=== PATIENT | male | born 1990 | race Caucasian/White ===

== ENCOUNTER 2018-10-04 06:16 | Day surgery (SDC) | payer OTHER ==
[2018-10-04] MEDS ORDERED: VANCOMYCIN 500 MG (PMX) 100 ML IVPB (06:30)
[2018-10-04] MEDS ORDERED: ROPIVACAINE 0.5 % 30 ML VIAL ×2 (06:59→07:29)
[2018-10-04] MEDS ORDERED: CEFAZOLIN 2 GM/50 ML (PMX) 50 ML IVPB (07:00)
[2018-10-04] MEDS ORDERED: CLINDAMYCIN 600 MG INJ IV (07:00)
[2018-10-04] MEDS ORDERED: MIDAZOLAM 1 MG/ML 2 ML INJ (07:26)
[2018-10-04] MEDS ORDERED: FENTAnyl 50 MCG/ML VIAL (07:26)
[2018-10-04] MEDS ORDERED: IBUPROFEN 600 MG TAB PO (07:30)
[2018-10-04] MEDS ORDERED: ONDANSETRON 4 MG INJ IV ×2 (07:30→09:00)
[2018-10-04] MEDS ORDERED: KETOROLAC 30 MG INJ IV (07:30)
[2018-10-04] MEDS ORDERED: CLINDAMYCIN 900 MG/D5W (PMX) 50 ML IVPB (07:51)
[2018-10-04] MEDS ORDERED: ROCURONIUM 50 MG INJ (07:52)
[2018-10-04] MEDS ORDERED: LIDOCAINE 2% (SDV) 5 ML INJ (07:52)
[2018-10-04] MEDS ORDERED: PROPOFOL 40 ML (07:52)
[2018-10-04] MEDS ORDERED: SUCCINYLCHOLINE CHLORIDE 100 MG/5 ML SYG IV (07:52)
[2018-10-04] MEDS: BUPIVACAINE 0.5%/EPI (SDV) 30 ML INJ (08:15)
[2018-10-04] MEDS ORDERED: DEXAMETHASONE 4 MG/ML 5 ML INJ (08:22)
[2018-10-04] MEDS ORDERED: FAMOTIDINE 20 MG INJ (08:22)
[2018-10-04] MEDS ORDERED: ONDANSETRON 4 MG INJ (08:22)
[2018-10-04] MEDS: EPINEPHrine 1 MG/ML 30 ML INJ IRR (08:26)
[2018-10-04] MEDS ORDERED: HYDROmorphONE 1 MG/5 ML IV SYRINGE IV ×3 (09:00)
[2018-10-04] MEDS ORDERED: FENTAnyl 50 MCG/ML VIAL IV (09:00)
[2018-10-04] MEDS ORDERED: DIPHENHYDRAMINE 50 MG INJ IV (09:00)
[2018-10-04] MEDS ORDERED: PROCHLORPERAZINE 10 MG INJ IV (09:00)
[2018-10-04] MEDS ORDERED: OXYCODONE/ACETAMINOPHEN (5/325) TAB PO (09:00)
[2018-10-04] MEDS ORDERED: MEPERIDINE 25 MG INJ IV (09:00)
[2018-10-04] MEDS ORDERED: NEOSTIGMINE 3 MG/3 ML SYRINGE (09:27)
[2018-10-04] MEDS ORDERED: GLYCOPYRROLATE 0.4 MG INJ (09:27)
[2018-10-04] MEDS ORDERED: EPHEDrine SULFATE 50 MG/5 ML SYG (09:29)
== END 2018-10-04 11:33 | disposition home or self-care (01) ==
LOC: SDS 06:16
DX: S43.432D Superior glenoid labrum lesion of left shoulder, subsequent encounter (principal); X58.XXXD Exposure to other specified factors, subsequent encounter; S43.492D Other sprain of left shoulder joint, subsequent encounter; M25.312 Other instability, left shoulder
CPT/HCPCS: 29807; 71045